=== PATIENT | male | born 2000 | race Caucasian/White ===

== ENCOUNTER 2021-03-13 08:16 | Inpatient (IN) ==
--- NOTE | 2021-03-13 08:35 | Emergency Department Note ---
Impression & Plan Pneumomediastinum ED Provider Note NAME: JOSE SOLITARIO AGE: 20 SEX: M : 2000 ARRIVES VIA: Walk-In INFORMANT: Patient, ED PROVIDER(S): Valeriy Nixon MD Chief Complaint: Sore throat, difficulty breathing HPI: Patient does present with the above complaints and states that this began yesterday. The patient did take some Advil which mildly improved his symptoms. The patient denies any cough or vomiting. The patient denies any alcohol tobacco or drug use. Patient is not vaccinated for COVID-19. Patient states that he noticed some increasing stiffness to the neck and thought he felt "rice crispies." The patient denies any trauma. Patient denies any falls or head injury. Patient denies any acute difficulty breathing at the bedside and states he is able to handle his secretions and swallow okay. Patient last had a negative Covid test through [facility] last Saturday. Patient denies any fevers or chills abdominal pain nausea or vomiting. ROS: See HPI for pertinent positives and negatives. A total of 10 systems were reviewed and otherwise negative. Past medical history: See below Surgical history: See below Social history: See below Physical Exam: GENERAL: NAD, wearing a mask, non-toxic. EYE EXAM: Normal conjunctiva. PERRL, no anisocoria and EOM's grossly intact w/o pain. NECK: Crepitus over the left anterior neck. Supple, no nuchal rigidity, no adenopathy, non-tender. No signs of meningismus. FROM of the neck with good chin to chest and neck extension. No stridor. LUNGS: Clear to auscultation. Normal chest wall mechanics. HEART: NSR, no MRG. ABDOMEN: Abdomen soft, non-tender, normo-active bowel sounds, no masses, no rebound or guarding. BACK: No CVA TTP. SKIN: No rashes and no bruising. UPPER EXTREMITIES: Upper extremities are grossly normal. LOWER EXTREMITIES: Grossly normal, no edema. NEURO EXAM: A&O x3, cranial nerves II-XII grossly intact, normal speech, moves all 4 extremities on command w/o issue. Differential diagnoses: Pneumomediastinum, pneumothorax, esophageal perforation/tear viral syndrome, tonsillitis, streptococcal pharyngitis, mononucleosis, peritonsillar abscess, retropharyngeal abscess, otitis, pneumonia, influenza, as well as other pathologies. Course: Patient was seen and evaluated the bedside. Full history physical exam was performed. EKG interpreted by me Sinus, rate of 61, normal intervals, normal axis, no ST changes or T WI. Imaging Studies: See Below Cardiac monitoring: An order was placed for continuous cardiac monitoring. The monitor shows a rate of 65 with sinus rhythm. MDM: Patient did present due to concern for crepitus to the neck. Blood work was obtained along with CT soft tissue neck and chest. Patient does have a normal white count H&H and platelet count. Kidney function is unremarkable. Patient does have mild elevation in bilirubin but no upper abdominal pain. Covid negative. CTs do show concern for subcutaneous emphysema and pneumomediastinum. I did speak with the on-call fabrication supervisor Dr. Mcdonough who recommended further eval with Gastrografin swallow study and did recommend observation and admission. Swallow study is negative. I did convey the findings to the patient as well as the patient's mother at bedside. They are in agreement plan of care. Patient was made by Dr. Bush. 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 Feels Safe at Home: Yes Immunizations: Not vaccinated for COVID-19 Allergies Allergies Allergy/AdvReac Type Severity Reaction Status Date / Time No Known Allergies Allergy Unverified 03/13/21 09:07 Home Meds Home Medications Medication Instructions Recorded Confirmed No Known Home Medications 03/13/21 03/13/21 Results & Data (ED) Vital Signs Vital Signs - 24 hr 03/13/21 08:26 03/13/21 09:00 03/13/21 09:02 Temperature 36.7 C Temperature Source Temporal Artery Scan Pulse Rate 60 70 Pulse Rate from SpO2 Sensor 70 Pulse Rhythm Respiratory Rate 18 15 Respiratory Effort / Characteristics Non-Labored Spontaneous Respiratory Depth Normal Respiratory Pattern Regular Blood Pressure 151/92 H Blood Pressure [Right Arm] Blood Pressure Mean 111 Blood Pressure Mean [Right Arm] Blood Pressure Position Sitting Pulse Oximetry 97 99 99 Oxygen Delivery Method Room Air Room Air Room Air Sepsis Recent Fever Within 48 Hours No Sepsis New/Unexplained Change in Mental Status N/A Sepsis Action Taken by Nursing No Action Required 03/13/21 09:04 03/13/21 09:30 03/13/21 10:00 Temperature Temperature Source Pulse Rate 58 L 63 49 L Pulse Rate from SpO2 Sensor 63 51 L Pulse Rhythm Regular Respiratory Rate 16 16 14 Respiratory Effort / Characteristics Respiratory Depth Respiratory Pattern Blood Pressure Blood Pressure [Right Arm] Blood Pressure Mean Blood Pressure Mean [Right Arm] Blood Pressure Position Pulse Oximetry 100 98 98 Oxygen Delivery Method Room Air Room Air Room Air Sepsis Recent Fever Within 48 Hours Sepsis New/Unexplained Change in Mental Status Sepsis Action Taken by Nursing 03/13/21 10:30 03/13/21 11:00 03/13/21 12:00 Temperature Temperature Source Pulse Rate 63 54 L 61 Pulse Rate from SpO2 Sensor 64 58 L Pulse Rhythm Respiratory Rate 12 17 12 Respiratory Effort / Characteristics Respiratory Depth Respiratory Pattern Blood Pressure Blood Pressure [Right Arm] Blood Pressure Mean Blood Pressure Mean [Right Arm] Blood Pressure Position Pulse Oximetry 99 96 96 Oxygen Delivery Method Sepsis Recent Fever Within 48 Hours Sepsis New/Unexplained Change in Mental Status Sepsis Action Taken by Nursing 03/13/21 12:30 03/13/21 13:00 03/13/21 13:30 Temperature Temperature Source Pulse Rate 61 61 58 L Pulse Rate from SpO2 Sensor Pulse Rhythm Respiratory Rate 16 24 11 L Respiratory Effort / Characteristics Respiratory Depth Respiratory Pattern Blood Pressure Blood Pressure [Right Arm] Blood Pressure Mean Blood Pressure Mean [Right Arm] Blood Pressure Position Pulse Oximetry 96 96 96 Oxygen Delivery Method Sepsis Recent Fever Within 48 Hours Sepsis New/Unexplained Change in Mental Status Sepsis Action Taken by Nursing 03/13/21 14:00 Temperature Temperature Source Pulse Rate 57 L Pulse Rate from SpO2 Sensor Pulse Rhythm Respiratory Rate 12 Respiratory Effort / Characteristics Respiratory Depth Respiratory Pattern Blood Pressure Blood Pressure [Right Arm] 147/78 H Blood Pressure Mean Blood Pressure Mean [Right Arm] 101 Blood Pressure Position Pulse Oximetry 96 Oxygen Delivery Method Sepsis Recent Fever Within 48 Hours Sepsis New/Unexplained Change in Mental Status Sepsis Action Taken by Half-Way Medications Current Medication List: was personally reviewed by me Laboratory Data Attestation: I reviewed the patient's lab results. Result diagrams: 03/13/21 08:50 03/13/21 08:50 Lab Results 03/13/21 03/13/21 03/13/21 Range/Units 08:50 08:50 08:50 WBC 5.34 (4.8-10.8) K/uL RBC 5.03 (4.7-6.1) M/uL Hgb 15.9 (14.0-18.0) g/dL POC Hgb (14.0-18.0) g/dl Hct 44.9 (42-52) % POC Hct (42-52) % MCV 89.3 (80-100) fL MCH 31.6 (25-34) pg MCHC 35.4 (32-36) g/dL RDW Std Deviation 39.5 (36.4-46.3) fL RDW Coeff of Anna 12.1 (11.5-14.5) % Plt Count 235 (130-400) K/uL MPV 10.2 (7.4-10.4) fL Immature Gran % (Auto) 0.2 % Neut % (Auto) 55.4 % Lymph % (Auto) 31.8 % George % (Auto) 10.3 % Eos % (Auto) 1.7 % Baso % (Auto) 0.6 % Neut # (Auto) 2.96 (1.4-6.5) K/uL Lymph # (Auto) 1.70 (1.2-3.4) K/uL George # (Auto) 0.55 (0.11-0.59) K/uL Eos # (Auto) 0.09 (0-0.5) K/uL Baso # (Auto) 0.03 (0-0.2) K/uL Immature Gran # (Auto) 0.01 (0.00-0.02) K/uL PT 11.1 (9.0-12.0) Seconds INR 1.1 (0.9-1.1) POC Sodium (135-144) mmol/L Sodium 140 (136-145) mmol/L POC Potassium (3.3-5.0) mmol/L Potassium 3.6 (3.5-5.1) mmol/L POC Chloride (101-112) mmol/L Chloride 106 (98-107) mmol/L Carbon Dioxide 28 (21-32) mmol/L POC Total CO2 (24-31) mmol/L Anion Gap 6.0 (3-11) POC Anion Gap (16-25) mmol/L POC BUN (7-18) mg/dl BUN 17 (7-18) mg/dl Creatinine 1.23 (0.6-1.4) mg/dl POC Creatinine mg/dl Est Cr Clr Drug Dosing 105.4 ml/min Est GFR ( Amer) 97.3 ml/min Est GFR (Non-Af Amer) 84.0 ml/min BUN/Creatinine Ratio 13.4 (10-20) Glucose 95 (70-99) mg/dl POC Glucose (other) (70-99) mg/dl Calcium 9.1 (8.5-10.1) mg/dl POC Ioniz Calcium Harriet mmol/l Total Bilirubin 1.4 H (0.2-1) mg/dl AST 9 L (15-37) U/L ALT 16 (12-78) U/L Alkaline Phosphatase 83 (45-117) U/L Total Protein 7.3 (6.4-8.2) gm/dl Albumin 3.9 (3.4-5.0) gm/dl Globulin 3.4 (2.5-4.0) gm/dl Albumin/Globulin Ratio 1.1 (0.9-2) COVID-19 Eval Order SARS-CoV-2 (PCR) (Negative) 03/13/21 03/13/21 03/13/21 Range/Units 08:50 08:50 09:00 WBC (4.8-10.8) K/uL RBC (4.7-6.1) M/uL Hgb (14.0-18.0) g/dL POC Hgb 15.3 (14.0-18.0) g/dl Hct (42-52) % POC Hct 45 (42-52) % MCV (80-100) fL MCH (25-34) pg MCHC (32-36) g/dL RDW Std Deviation (36.4-46.3) fL RDW Coeff of Anna (11.5-14.5) % Plt Count (130-400) K/uL MPV (7.4-10.4) fL Immature Gran % (Auto) % Neut % (Auto) % Lymph % (Auto) % George % (Auto) % Eos % (Auto) % Baso % (Auto) % Neut # (Auto) (1.4-6.5) K/uL Lymph # (Auto) (1.2-3.4) K/uL George # (Auto) (0.11-0.59) K/uL Eos # (Auto) (0-0.5) K/uL Baso # (Auto) (0-0.2) K/uL Immature Gran # (Auto) (0.00-0.02) K/uL PT (9.0-12.0) Seconds INR (0.9-1.1) POC Sodium 140 (135-144) mmol/L Sodium (136-145) mmol/L POC Potassium 3.6 (3.3-5.0) mmol/L Potassium (3.5-5.1) mmol/L POC Chloride 100 L (101-112) mmol/L Chloride (98-107) mmol/L Carbon Dioxide (21-32) mmol/L POC Total CO2 26 (24-31) mmol/L Anion Gap (3-11) POC Anion Gap 18.0 (16-25) mmol/L POC BUN 17 (7-18) mg/dl BUN (7-18) mg/dl Creatinine (0.6-1.4) mg/dl POC Creatinine 1.1 mg/dl Est Cr Clr Drug Dosing ml/min Est GFR ( Amer) ml/min Est GFR (Non-Af Amer) ml/min BUN/Creatinine Ratio (10-20) Glucose (70-99) mg/dl POC Glucose (other) 94 (70-99) mg/dl Calcium (8.5-10.1) mg/dl POC Ioniz Calcium Harriet 1.31 mmol/l Total Bilirubin (0.2-1) mg/dl AST (15-37) U/L ALT (12-78) U/L Alkaline Phosphatase (45-117) U/L Total Protein (6.4-8.2) gm/dl Albumin (3.4-5.0) gm/dl Globulin (2.5-4.0) gm/dl Albumin/Globulin Ratio (0.9-2) COVID-19 Eval Order Covid19 at [facility] SARS-CoV-2 (PCR) NEGATIVE (Negative) Administered Medications Discontinued Medications Sodium Chloride (Nss) 500 mls @ 999 mls/hr IV .Q31M LUCÍA Stop: 03/13/21 09:15 Last Infusion: 03/13/21 09:37 Dose: 0 mls/hr Documented by: [id number] Admin: 03/13/21 08:58 Dose: 999 mls/hr Documented by: [id number] Ioversol (Optiray 320 100ml) 94 ml IV ONCE ONE Stop: 03/13/21 09:47 Last Admin: 03/13/21 09:45 Dose: 94 ml Documented by: [id number] Imaging Data Radiologist's Impression: Chest CT 03/13/21 08:39 CT OF THE CHEST WITH IV CONTRAST CLINICAL HISTORY: ?pneumomediastinum/crepitus over neck COMPARISON STUDY: Chest radiograph performed earlier today. TECHNIQUE: Following IV administration of 94 mL of Optiray, helical axial images of the chest were obtained. Sagittal and coronal reconstructions were viewed as well as maximal intensity projections on an independent 3-D workstation. Automated exposure control was utilized for the study. A dose lowering technique was utilized adhering to the principles of ALARA. FINDINGS: Note is made of moderate pneumomediastinum and subcutaneous gas within the lower neck. There is no pericardial effusion. There is no pneumothorax. The source for pneumomediastinum is not clear on this exam. Size of the heart is normal. There is no pericardial effusion. There is no consolida tion to suggest pneumonia. There are no pulmonary nodules. No acute fracture or suspicious lesion is identified within the visualized skeletal structures. Note is made of a 1.9 cm enhancing lateral segment hepatic lesion. This is likely benign. This may reflect a flash filling hemangioma. IMPRESSION: Moderate pneumomediastinum and associated subcutaneous gas within the neck. No pneumothorax or pleural effusion. Source for pneumomediastinum not clear on this exam but often from alveolar rupture. ACT 112: Negative or not required by law. Electronically signed by: Toi Messer M.D. 03/13/2021 10:24 AM Chest X-Ray 03/13/21 08:39 XR chest 1V portable HISTORY: weakness COMPARISON: None. FINDINGS: The lungs are clear. The heart is normal in size. There is small amount of pneumomediastinum within the upper chest and subcutaneous emphysema within the neck base/supraclavicular regions. No definite pneumothorax. No fractures within the visualized osseous structures. IMPRESSION: Pneumomediastinum with a small amount of subcutaneous emphysema within the neck base/supraclavicular location. This will be better assessed on the same day chest neck CTA. ACT 112: Negative or not required by law. Electronically signed by: Ike Mejia M.D. 03/13/2021 9:[address] Tissue Neck [address] 03/13/21 08:39 CT soft tissue neck w con HISTORY: Neck pain. ?pneumomediastinum/crepitus over neck TECHNIQUE: Multiaxial CT images of the neck were performed following the use of intravenous contrast and reformatted in the sagittal and coronal plane at the workstation by the radiologist. COMPARISON STUDY: None. FINDINGS: The visualized brain parenchyma and orbits are unremarkable. The pterygopalatine fossa are well-maintained. There is pneumomediastinum with soft tissue gas extending throughout the prevertebral/paravertebral soft tissues and the neck. There is also subcutaneous edema seen within the neck base/supra clavi cular locations. No fractures within the visualized osseous structures. The paranasal sinuses and mastoid air cells are clear. The thyroid gland enhances normally. No cervical lymphadenopathy identified. The parotid and submandibular glands are symmetric. Prevertebral soft tissues and the epiglottis are normal in thickness. The contours of the hypopharynx are within normal limits. The major cervical vessels enhance normally. IMPRESSION: Soft tissue gas seen throughout the neck. This is likely secondary to the pneumomediastinum. This is better appreciated on the same day chest CT. ACT 112: Negative or not required by law. Electronically signed by: Ike Mejia M.D. 03/13/2021 10:00 AM Barium Swallow X-Ray 03/13/21 10:46 FL barium swallow w/o air CLINICAL HISTORY: pneumomediastinum, gastrographin. Assess for esophageal injury. COMPARISON STUDY: Chest CT 03/13/2021. FLUOROSCOPY TIME: 0.1 minutes. FINDINGS: 10 fluoroscopic spot images of the esophagus were submitted. The patient swallowed Gastrografin contrast without difficulty. The esophagus is normal in course, caliber, motility. No hiatus hernia. No extravasation of contrast to suggest a leak. No evidence for esophageal injury. Pneumomediastinum is again noted. IMPRESSION: 1. No evidence for esophageal injury/tear. 2. Pneumomediastinum again noted. ACT 112: Negative or not required by law. Electronically signed by: Ike Mejia M.D. 03/13/2021 11:16 AM Discharge Plan Visit Data Chief Complaint: Illness Stated Complaint: SORE THROAT, HARD TO BREATHE YESTERDAY ED Provider: Valeriy Nixon Discharge Problem: Pneumomediastinum Patient Disposition: Admitted As Inpatient Prescriptions Prescriptions: No Action No Known Home Medications RF: 0 Referrals Referrals: PCP,NO [Primary Care Provider] -
[2021-03-13] MEDS ORDERED: SODIUM CHLORIDE 0.9% 500 ML IV SCH (08:45)
[2021-03-13 09:05] LABS: Basophils # (auto) 0.03 K/uL (0-0.2); Basophils % (auto) 0.6 %; Eosinophils # (auto) 0.09 K/uL (0-0.5); Eosinophils % (auto) 1.7 %; Hematocrit (blood only) 44.9 % (42-52); Hemoglobin 15.9 g/dL (14.0-18.0); Immature Granulocytes # (auto) 0.01 K/uL (0.00-0.02); Immature Granulocytes % (auto) 0.2 %; Lymphocytes % (auto) 31.8 %; Mean Corpuscular Hemoglobin 31.6 pg (25-34); Mean Corpuscular Hgb Conc 35.4 g/dL (32-36); Mean Corpuscular Volume 89.3 fL (80-100); Mean Platelet Volume 10.2 fL (7.4-10.4); Monocytes # (auto) 0.55 K/uL (0.11-0.59); Monocytes % (auto) 10.3 %; Neutrophils # (auto) 2.96 K/uL (1.4-6.5); Neutrophils % (auto) 55.4 %; Platelet Count 235 K/uL (130-400); RDW Coefficient of Variation 12.1 % (11.5-14.5); RDW Standard Deviation 39.5 fL (36.4-46.3); Red Blood Count 5.03 M/uL (4.7-6.1); White Blood Count 5.34 K/uL (4.8-10.8)
[2021-03-13 09:13] LABS: iSTAT Creatinine 1.1 mg/dl; iSTAT Hemoglobin 15.3 g/dl (14.0-18.0); iSTAT Ionized Calcium 1.31 mmol/l; iSTAT Potassium 3.6 mmol/L (3.3-5.0)
[2021-03-13 09:17] LABS: INR 1.1 (0.9-1.1); Prothrombin Time 11.1 Seconds (9.0-12.0)
--- NOTE | 2021-03-13 09:29 | XRay Report ---
XR chest 1V portable HISTORY: weakness COMPARISON: None. FINDINGS: The lungs are clear. The heart is normal in size. There is small amount of pneumomediastinu m within the upper chest and subcutaneous emphysema within the neck base/supraclavicular regions. No definite pneumothorax. No fractures within the visualized osseous structures. IMPRESSION: Pneumomediastinum with a small amount of subcutaneous emphysema within the neck base/supraclavicular location. This will be better assessed on the same day chest neck CTA. ACT 112: Negative or not required by law. Electronically signed by: Ike Mejia M.D. 03/13/2021 9:27 AM
[2021-03-13 09:30] LABS: Albumin Level 3.9 gm/dl (3.4-5.0); BUN Creatinine Ratio 13.4 (10-20); Calcium 9.1 mg/dl (8.5-10.1); Creatinine Clr Calc Pharmacy 105.4 ml/min; Est GFR (African American) 97.3 ml/min; Potassium 3.6 mmol/L (3.5-5.1)
[2021-03-13 09:33] LABS: Albumin Globulin Ratio 1.1 (0.9-2); Bilirubin,Total 1.4 mg/dl (0.2-1); Globulin 3.4 gm/dl (2.5-4.0); Total Protein 7.3 gm/dl (6.4-8.2)
[2021-03-13] MEDS ORDERED: OPTIRAY 320 100ml IV ONE (09:46)
--- NOTE | 2021-03-13 10:02 | CT Scan Report ---
CT soft tissue neck w con HISTORY: Neck pain. ?pneumomediastinum/crepitus over neck TECHNIQUE: Multiaxial CT images of the neck were performed following the use of intravenous contrast and reformatted in the sagittal and coronal plane at the workstation by the radiologist. COMPARISON STUDY: None. FINDINGS: The visualized brain parenchyma and orbits are unremarkable. The pterygopalatine fossa are well-maintained. There is pneumomediastinum with soft tissue gas extending throughout the prevertebra l/paravertebral soft tissues and the neck. There is also subcutaneous edema seen within the neck base /supra clavicular locations. No fractures within the visualized osseous structures. The paranasal sin uses and mastoid air cells are clear. The thyroid gland enhances normally. No cervical lymphadenopath y identified. The parotid and submandibular glands are symmetric. Prevertebral soft tissues and the e piglottis are normal in thickness. The contours of the hypopharynx are within normal limits. The henry r cervical vessels enhance normally. IMPRESSION: Soft tissue gas seen throughout the neck. This is likely secondary to the pneumomediastinum. This is better appreciated on the same day chest CT. ACT 112: Negative or not required by law. Electronically signed by: Ike Mejia M.D. 03/13/2021 10:00 AM
--- NOTE | 2021-03-13 10:25 | CT Scan Report ---
CT OF THE CHEST WITH IV CONTRAST CLINICAL HISTORY: ?pneumomediastinum/crepitus over neck COMPARISON STUDY: Chest radiograph performed earlier today. TECHNIQUE: Following IV administration of 94 mL of Optiray, helical axial images of the chest were o btained. Sagittal and coronal reconstructions were viewed as well as maximal intensity projections o n an independent 3-D workstation. Automated exposure control was utilized for the study. A dose low ering technique was utilized adhering to the principles of ALARA. FINDINGS: Note is made of moderate pneumomediastinum and subcutaneous gas within the lower neck. The re is no pericardial effusion. There is no pneumothorax. The source for pneumomediastinum is not cordell r on this exam. Size of the heart is normal. There is no pericardial effusion. There is no consolidat ion to suggest pneumonia. There are no pulmonary nodules. No acute fracture or suspicious lesion is i dentified within the visualized skeletal structures. Note is made of a 1.9 cm enhancing lateral segme nt hepatic lesion. This is likely benign. This may reflect a flash filling hemangioma. IMPRESSION: Moderate pneumomediastinum and associated subcutaneous gas within the neck. No pneumotho rax or pleural effusion. Source for pneumomediastinum not clear on this exam but often from alveolar rupture. ACT 112: Negative or not required by law. Electronically signed by: Toi Messer M.D. 03/13/2021 10:24 AM
--- NOTE | 2021-03-13 11:17 | Fluoroscopy Report ---
FL barium swallow w/o air CLINICAL HISTORY: pneumomediastinum, gastrographin. Assess for esophageal injury. COMPARISON STUDY: Chest CT 03/13/2021. FLUOROSCOPY TIME: 0.1 minutes. FINDINGS: 10 fluoroscopic spot images of the esophagus were submitted. The patient swallowed Gastrogr afin contrast without difficulty. The esophagus is normal in course, caliber, motility. No hiatus her tanvir. No extravasation of contrast to suggest a leak. No evidence for esophageal injury. Pneumomediast inum is again noted. IMPRESSION: 1. No evidence for esophageal injury/tear. 2. Pneumomediastinum again noted. ACT 112: Negative or not required by law. Electronically signed by: Ike Mejia M.D. 03/13/2021 11:16 AM
--- NOTE | 2021-03-13 13:17 | History & Physical Report ---
Date of Service March 13, 2021 Assessment & Plan (1) Pneumomediastinum: Plan: Patient reports he weight lifts Saturday through Saturday. This may have contributted to his problem. Will admit under observation. will recheck chest x ray in AM. D/W pulmonary, who recommends to repeat x ray in AM. Pulmonaryn Consult placed per request from Family Barium Swallow eval was negative. will place on full liquid diet and advance as tolerated. Will hold off DVT proph for now. History of Present Illness Chief Complaint: chest pain Primary Care Provider: NO PCP 20 yo male with no significant past medical history comes into the hospital after having chest pain on Saturday. Patient reports midsternum dull chest pain even on shallow inspiration yesterday morning. It continued throughout the day. The next day (today)patient reported having crackling when swallowing and palpating his neck. Patient reports that he weight lifts during the week, but did not notice any issues or discomfort out of the ordinary after his weight lifting session on Saturday. 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: [employer] 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 Other Information That Helps Us Care for You: No Feels Safe at Home: Yes Safety Concerns: Feels Safe At This Time Assistive Devices: None Review of Systems Constitutional: as per Subjective / HPI; no fever and no sweats Eyes: no blind spots and no diplopia Ear, Nose, Mouth, Throat: no ear pain and no ear trauma Respiratory: no cough and no change in sputum Cardiovascular: no chest pain Gastrointestinal: no abdominal pain and no bloating Musculoskeletal: no back pain and no radicular pain Integumentary: no acne and no rash Neurologic: no gait abnormality Psychiatric: no behavioral changes and no hopelessness Endocrine: no fatigue Physical Exam Constitutional: WD/WN, vitals as above Eyes: PERRL, conjunctivae normal, anicteric sclerae ENMT: external ear and nose normal, oropharynx normal Neck: trachea midline, no thyromegaly mild swelling anteriorly, crepitus noted on palpation (off superior left clavicle). Respiratory: normal respiratory effort, lungs clear to auscultation Cardiovascular: RRR, no murmur, no edema Gastrointestinal (Abdomen): normal bowel sounds, soft, nontender, no hepatosplenomegaly Musculoskeletal: no cyanosis or clubbing, extremities motor strength 5/5 Skin: no rashes, warm and dry Results & Data Results & Data ([facility]) Vital Signs (Past 12 Hours) Vital Signs Temp Pulse Resp BP Pulse Ox 03/13/21 10:00 49 L 14 98 03/13/21 09:30 63 16 98 03/13/21 09:04 58 L 16 100 03/13/21 09:02 99 03/13/21 09:00 70 15 99 03/13/21 08:26 36.7 C 60 18 151/92 H 97 PG Care Time/CCT Total # of Minutes Spent Total Time Spent with Patient: Total time spent is greater than 50% in coordination of care (as documented) at patient's floor/unit and/or counseling patient: Coding Level of Care Code INT OBSERVATION CARE 70M LVL 3 Diagnoses Pneumomediastinum J98.2
--- NOTE | 2021-03-13 16:07 | Pulmonary Consultation ---
Date of Consultation March 13, 2021 Assessment & Plan (1) Pneumomediastinum: Impression: 20-year-old male with what appears to be acute primary pneumomediastinum. Gastrografin swallow was unremarkable. Unclear if this could have been related to Valsalva maneuvers performed while the patient was lifting weights although he does not describe significant straining against a closed glottis. Nicholas effect is possible. There does not appear to be any evidence of structural lung disease. Recommendations: 1. I reviewed the images independently and with the patient and his mother who is a cardiac nurse practitioner. We reviewed the pathophysiology behind primary pneumomediastinum as well as treatment options. I feel that we have excluded all serious causes of pneumomediastinum at this point time and would recommend following the patient with a repeat chest x-ray in 24hours as this appears to be an unprovoked event. The reason to perform the chest x-rays to ensure he is not developing pneumothorax or any other complications such as pneumopericardium. If it looks stable, the patient can likely be discharged home. 2. Pain control, anxiolysis and cough suppression as needed. Okay to advance his diet to regular 3. 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 Depending on his imaging study tomorrow, he may require additional imaging to document resolution although he was advised this may take days to weeks for the subcutaneous air to resolve. He was advised to contact us if he experiences changes in voice, difficulty breathing, progressive chest discomfort, fevers, or progressive chest pain. This would necessitate more urgent imaging. The above recommendations and plan were extensively discussed with the patient and his mother at the bedside. Questions were answered to the best my ability. They expressed understanding and are in agreement with plan as outlined History of Present Illness Attending Physician: Jacinto Bush History of Present Illness Asked by hospitalist to assist in evaluation management this patient with what appears to be a spontaneous pneumomediastinum. History is obtained from discussion with the patient his mother at bedside as well as review the [facility] medical record. Patient is a 20-year-old male without any pulmonary history who presented to the emergency room today after waking up with some neck fullness and pain. Chest x- ray and CT scan were performed which demonstrated primary pneumomediastinum without pneumothorax. No structural lung disease. Patient does lift weights about 3 times a week and last did it on Saturday. He does not report any significant straining. He is not had any nausea vomiting or retching. No prior history of asthma although his mother does relate that he had a history of bronchiolitis as a child and was on nebulizers for a brief period of time. No family history of structural lung disease. The patient denies any vaping or cigarette use. No history of THC use or cocaine abuse. He is not had any whe ezing. No fevers chills night sweats or other constitutional symptoms. 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 No additions or deletions Physical Exam Constitutional: WD/WN, vitals as above Neck: trachea midline, no thyromegaly Crepitus palpable in the anterior neck descending down to the sternum Respiratory: normal respiratory effort, lungs clear to auscultation Cardiovascular: RRR, no murmur, no edema Gastrointestinal (Abdomen): normal bowel sounds, soft, nontender, no hepatosplenomegaly Musculoskeletal: Extremities: extremities normal to inspection Skin: no rashes, warm and dry Neurologic: Nonfocal exam Lymphatic: no cervical lymphadenopathy Results & Data Results & Data ([facility]) Vital Signs (Past 12 Hours) Vital Signs Temp Pulse Resp BP BP Pulse Ox 03/13/21 14:00 57 L 12 147/78 H 96 03/13/21 13:30 58 L 11 L 96 03/13/21 13:00 61 24 96 03/13/21 12:30 61 16 96 03/13/21 12:00 61 12 96 03/13/21 11:00 54 L 17 96 03/13/21 10:30 63 12 99 03/13/21 10:00 49 L 14 98 03/13/21 09:30 63 16 98 03/13/21 09:04 58 L 16 100 03/13/21 09:02 99 03/13/21 09:00 70 15 99 03/13/21 08:26 36.7 C 60 18 151/92 H 97 Critical Care Results & Data Vital Signs (Past 12 Hours) Vital Signs Temp Pulse Resp BP BP Pulse Ox 03/13/21 14:00 57 L 12 147/78 H 96 03/13/21 13:30 58 L 11 L 96 03/13/21 13:00 61 24 96 03/13/21 12:30 61 16 96 03/13/21 12:00 61 12 96 03/13/21 11:00 54 L 17 96 03/13/21 10:30 63 12 99 03/13/21 10:00 49 L 14 98 03/13/21 09:30 63 16 98 03/13/21 09:04 58 L 16 100 03/13/21 09:02 99 03/13/21 09:00 70 15 99 03/13/21 08:26 36.7 C 60 18 151/92 H 97 Lab & Micro Results (Past 24 Hours) RBC 5.03 M/uL (4.7-6.1) 03/13/21 WBC 5.34 K/uL (4.8-10.8) 03/13/21 Hgb 15.9 g/dL (14.0-18.0) 03/13/21 Hct 44.9 % (42-52) 03/13/21 MCV 89.3 fL (80-100) 03/13/21 MCH 31.6 pg (25-34) 03/13/21 MCHC 35.4 g/dL (32-36) 03/13/21 RDW Standard Deviation 39.5 fL (36.4-46.3) 03/13/21 RDW Coefficient of Variation 12.1 % (11.5-14.5) 03/13/21 Plt Count 235 K/uL (130-400) 03/13/21 MPV 10.2 fL (7.4-10.4) 03/13/21 Neutrophils (%) (Auto) 55.4 % 03/13/21 Lymphocytes (%) (Auto) 31.8 % 03/13/21 Monocytes # (Auto) 0.55 K/uL (0.11-0.59) 03/13/21 Eosinophils # (Auto) 0.09 K/uL (0-0.5) 03/13/21 Immature Granulocyte % (Auto) 0.2 % 03/13/21 Neutrophils # (Auto) 2.96 K/uL (1.4-6.5) 03/13/21 Lymphocytes # (Auto) 1.70 K/uL (1.2-3.4) 03/13/21 Monocytes # (Auto) 0.55 K/uL (0.11-0.59) 03/13/21 Eosinophils # (Auto) 0.09 K/uL (0-0.5) 03/13/21 Basophils # (Auto) 0.03 K/uL (0-0.2) 03/13/21 Immature Granulocyte # (Auto) 0.01 K/uL (0.00-0.02) 03/13/21 Na 140 mmol/L (136-145) 03/13/21 K 3.6 mmol/L (3.5-5.1) 03/13/21 Cl 106 mmol/L (98-107) 03/13/21 CO2 28 mmol/L (21-32) 03/13/21 Anion Gap 6.0 (3-11) 03/13/21 BUN 17 mg/dl (7-18) 03/13/21 Creatinine 1.23 mg/dl (0.6-1.4) 03/13/21 Estimated GFR ( Amer) 97.3 ml/min 03/13/21 Estimated GFR (Non-Af Amer) 84.0 ml/min 03/13/21 BUN/Creatinine Ratio 13.4 (10-20) 03/13/21 Glu 95 mg/dl (70-99) 03/13/21 Ca 9.1 mg/dl (8.5-10.1) 03/13/21 Total Bilirubin 1.4 mg/dl (0.2-1) H 03/13/21 AST 9 U/L (15-37) L 03/13/21 ALT 16 U/L (12-78) 03/13/21 Alkaline Phosphatase 83 U/L (45-117) 03/13/21 TP 7.3 gm/dl (6.4-8.2) 03/13/21 Albumin 3.9 gm/dl (3.4-5.0) 03/13/21 Globulin 3.4 gm/dl (2.5-4.0) 03/13/21 Albumin/Globulin Ratio 1.1 (0.9-2) 03/13/21 Calcium Level 9.1 mg/dl (8.5-10.1) 03/13/21 08:50 03/13/21 Prothromb Time International Ratio 1.1 (0.9-1.1) 03/13/21 08:50 03/13/21 Diagnostic Findings (Past 24 Hours) Chest CT 03/13/21 08:39 CT OF THE CHEST WITH IV CONTRAST CLINICAL HISTORY: ?pneumomediastinum/crepitus over neck COMPARISON STUDY: Chest radiograph performed earlier today. TECHNIQUE: Following IV administration of 94 mL of Optiray, helical axial images of the chest were obtained. Sagittal and coronal reconstructions were viewed as well as maximal intensity projections on an independent 3-D workstation. Automated exposure control was utilized for the study. A dose lowering technique was utilized adhering to the principles of ALARA. FINDINGS: Note is made of moderate pneumomediastinum and subcutaneous gas within the lower neck. There is no pericardial effusion. There is no pneumothorax. The source for pneumomediastinum is not clear on this exam. Size of the heart is normal. There is no pericardial effusion. There is no consolidation to suggest pneumonia. There are no pulmonary nodules. No acute fracture or suspicious lesion is identified within the visualized skeletal structures. Note is made of a 1.9 cm enhancing lateral segment hepatic lesion. This is likely benign. This may reflect a flash filling hemangioma. IMPRESSION: Moderate pneumomediastinum and associated subcutaneous gas within the neck. No pneumothorax or pleural effusion. Source for pneumomediastinum not clear on this exam but often from alveolar rupture. ACT 112: Negative or not required by law. Electronically signed by: Toi Messer M.D. 03/13/2021 10:24 AM Chest X-Ray 03/13/21 08:39 XR chest 1V portable HISTORY: weakness COMPARISON: None. FINDINGS: The lungs are clear. The heart is normal in size. There is small amount of pneumomediastinum within the upper chest and subcutaneous emphysema within the neck base/supraclavicular regions. No definite pneumothorax. No fractures within the visualized osseous structures. IMPRESSION: Pneumomediastinum with a small amount of subcutaneous emphysema within the neck base/supraclavicular location. This will be better assessed on the same day chest neck CTA. ACT 112: Negative or not required by law. Electronically signed by: Ike Mejia M.D. 03/13/2021 9:27 AM Soft Tissue Neck CT 03/13/21 08:39 CT soft tissue neck w con HISTORY: Neck pain. ?pneumomediastinum/crepitus over neck TECHNIQUE: Multiaxial CT images of the neck were performed following the use of intravenous contrast and reformatted in the sagittal and coronal plane at the workstation by the radiologist. COMPARISON STUDY: None. FINDINGS: The visualized brain parenchyma and orbits are unremarkable. The pterygopalatine fossa are well-maintained. There is pneumomediastinum with soft tissue gas extending throughout the prevertebral/paravertebral soft tissues and the neck. There is also subcutaneous edema seen within the neck base/supra clavicular locations. No fractures within the visualized osseous structures. The paranasal sinuses and mastoid air cells are clear. The thyroid gland enhances normally. No cervical lymphadenopathy identified. The parotid and submandibular glands are symmetric. Prevertebral soft tissues and the epiglottis are normal in thickness. The contours of the hypopharynx are within normal limits. The major cervical vessels enhance normally. IMPRESSION: Soft tissue gas seen throughout the neck. This is likely secondary to the pneumomediastinum. This is better appreciated on the same day chest CT. ACT 112: Negative or not required by law. Electronically signed by: Ike Mejia M.D. 03/13/2021 10:00 AM Barium Swallow X-Ray 03/13/21 10:46 FL barium swallow w/o air CLINICAL HISTORY: pneumomediastinum, gastrographin. Assess for esophageal injury. COMPARISON STUDY: Chest CT 03/13/2021. FLUOROSCOPY TIME: 0.1 minutes. FINDINGS: 10 fluoroscopic spot images of the esophagus were submitted. The patient swallowed Gastrografin contrast without difficulty. The esophagus is normal in course, caliber, motility. No hiatus hernia. No extravasation of contrast to suggest a leak. No evidence for esophageal injury. Pneumomediastinum is again noted. IMPRESSION: 1. No evidence for esophageal injury/tear. 2. Pneumomediastinum again noted. ACT 112: Negative or not required by law. Electronically signed by: Ike Mejia M.D. 03/13/2021 11:16 AM I & O Totals 24 Hours 03/12/21 03/13/21 03/14/21 06:59 06:59 06:59 Intake Total 500 / 500 Balance 500 / 500 Cumulative 03/13/21 08:16 thru 03/13/21 09:45 Intake Total 500 Balance 500 RT Ventilator Mngmt (Last Documented) Ventilator Ordered Settings Respiratory Rate 12 03/13/21 14:00 Ventilator - PT Measurements Respiratory Rate 12 PG Care Time/CCT Total # of Minutes Spent Total Time Spent with Patient: Total time spent is greater than 50% in coordination of care (as documented) at patient's floor/unit and/or counseling patient: Coding Level of Care Code 07427 Inpt Consult Level 3 Diagnoses Pneumomediastinum J98.2
[2021-03-13] MEDS ORDERED: FLUARIX QUADRIVALENT 0.5 ML SYR IM ONE (17:28)
[2021-03-13] MEDS ORDERED: ACETAMINOPHEN 325 MG TAB PO PRN (21:17)
[2021-03-14] MEDS ORDERED: COUGH DROP (SUGAR FREE) LOZ 24 LOZ/1 BOX BUCCAL PRN (01:39)
--- NOTE | 2021-03-14 09:04 | Pulmonology Progress Note ---
Date of Service March 14, 2021 Assessment & Plan (1) Pneumomediastinum: Plan: Impression: 20-year-old male with what appears to be acute primary pneumomediastinum. Gastrografin swallow was unremarkable. He appears clinically stable to improved this morning. We are awaiting his follow-up x-ray Recommendations: 1. Pneumomediastinum: Await chest x-ray today. If it demonstrates stability or improvement, the patient can be discharged from the hospital with pain control and instructions to return should he experience increasing chest pain or shortness of breath. 2. Pain control, anxiolysis and cough suppression as needed. 3. 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 4. Diarrhea per primary service I would be happy to see the patient back in clinic with a follow-up PA and lateral chest x-ray in 2 to 4 weeks if needed. The above recommendations and plan were extensively discussed with the patient and his mother at the bedside. Questions were answered to the best my ability. They expressed understanding and are in agreement with plan as outlined Admission and Anticipated Discharge Date Admission Date: March 13, 2021 Subjective Patient seen and examined. EMR reviewed. He slept reasonably well. He continues to have a small amount of pain just above his clavicles. He is not having any voice changes. No shortness of breath. No coughing. He did experience some loose stools overnight. No fevers chills or night sweats. He is tolerating a diet. Review of Systems Review of Systems: All systems reviewed & are unremarkable except as noted in Subjective Physical Exam Constitutional: WD/WN, vitals as above Neck: trachea midline, no thyromegaly Palpable crepitus appears decreased on palpation. Respiratory: normal respiratory effort, lungs clear to auscultation Cardiovascular: RRR, no murmur, no edema Gastrointestinal (Abdomen): normal bowel sounds, soft, nontender, no hepatosplenomegaly Musculoskeletal: Extremities: extremities normal to inspection Skin: no rashes, warm and dry Lymphatic: no cervical lymphadenopathy Results & Data Results & Data ([facility]) Vital Signs (Past 12 Hours) Vital Signs Temp Pulse Resp BP Pulse Ox 03/14/21 07:38 36.7 C 57 L 18 109/65 97 03/14/21 02:40 36.7 C 43 L 16 120/69 97 03/13/21 23:10 37.0 C 57 L 16 141/88 H 98 Laboratory Results 03/13/21 08:50 03/13/21 08:50 Diagnostic Findings Follow-up chest x-ray is pending PG Care Time/CCT Total # of Minutes Spent Total Time Spent with Patient: Total time spent is greater than 50% in coordination of care (as documented) at patient's floor/unit and/or counseling patient: Coding Level of Care Code 75274 Subseq Hosp Care Lvl 2 Diagnoses Pneumomediastinum J98.2
--- NOTE | 2021-03-14 09:29 | XRay Report ---
XR chest 2V PA/lateral CLINICAL HISTORY: pneumomediastinum TECHNIQUE: AP and lateral frontal radiograph of the chest was obtained. Comparison: Comparison is made to chest one view 03/13/2021 FINDINGS: No lines and tubes are seen. Residual pneumomediastinum, minimally decreased from prior exam. Subcuta neous emphysema is partially visualized in the soft tissues of the neck. The lungs are clear. No evid ence of pleural effusion or pneumothorax. IMPRESSION: Redemonstration of pneumomediastinum, minimally decreased from prior exam. ACT 112: Negative or not required by law. Electronically signed by: Raj Maciel M.D. 03/14/2021 9:28 AM
--- NOTE | 2021-03-14 10:05 | Discharge Summary ---
Date of Service March 14, 2021 Admission HPI Per Admitting Provider 20 yo male with no significant past medical history comes into the hospital after having chest pain on Saturday. Patient reports midsternum dull chest pain even on shallow inspiration yesterday morning. It continued throughout the day. The next day (today)patient reported having crackling when swallowing and palpating his neck. Patient reports that he weight lifts during the week, but did not notice any issues or discomfort out of the ordinary after his weight lifting session on Saturday. Principal Diagnosis Pneumomediastinum Discharge Exam Constitutional WD/WN, vitals as above Neck Normal neck on inspection Respiratory No respiratory distress Cardiovascular regular Psychiatric A+Ox3, euthymic affect Discharge Data Allergies Allergy/AdvReac Type Severity Reaction Status Date / Time No Known Allergies Allergy Unverified 03/13/21 09:07 Consultations 03/13/21 11:58 ED Decision to Admit Stat 03/13/21 12:34 ED Decision to Admit Stat 03/13/21 15:18 Consult Pulmonology Routine Ordered Studies 03/13/21 08:39 CT chest diagnostic w con Stat CT soft tissue neck w con Stat Hospital Course (1) Pneumomediastinum: 20 y/o M here with chest pain and feeling crepitus in his chest due to acute primary pneumomediastinum as confirmed on CXR and CT neck and chest. He also had Gastrografin swallow and it was unremarkable. He was kept overnight for observation. Stayed clinically stable. Repeat CXR showed minimal improvement. He was discharged home with prescription of norco for pain control and cough suppression. He was instructed to return should he experience increasing chest pain or shortness of breath. 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 To have outpatient follow-up with pulmonology for possible PA and lateral chest x-ray in 2 to 4 weeks if needed. Total Time Total Time Spent Total Time Spent (In Minutes): 30 Discharge Plan Discharge Items Patient Disposition: Home - Self-Care Reason For Visit: pneumomediastinum Discharge Diagnosis: Pneumomediastinum Activity: As commented below Non-emergency contact: Primary Care Provider Call non-emergency contact if: your symptoms worsen and your pain is not controlled Follow-up/Referrals: PCP,NO [Primary Care Provider] - Diet: Regular Addtl Attending Provider Instructions: Pneumomediastinum: -Your recheck xray showed stability with minimal improvement. You should return to ED if you experience increasing chest pain or shortness of breath. -Hydrocodone is being prescribed to you for pain control and cough suppresion. -You should avoid significant changes in barometric pressure including diving, or flying on commercial airline with pressurized air cabins for the next 6 weeks. -Please call Dr. Mcdonough clinic to set up appointment for follow-up in 2-4 weeks for recheck Xray if needed. Phone number - [phone] Pending Studies at Discharge: No Stand-Alone Forms: My [employer], Work/School Release, Smoking Cessation Medications and DC Order Prescriptions: New hydrocodone-acetaminophen 5-325 mg tablet 1 tab PO TID PRN (Reason: pain) Qty: 10 RF: 0 No Action No Known Home Medications RF: 0 Discharge Orders: Discharge Order (Routine); Ordered 03/14/21 Ordered By: Natalie Perera/Other Patient Handouts: Chest and Lung Problems, Interstitial Lung Disease Admission Data Admit Date/Time: 03/13/21 16:33 Attending Provider: Natalie Euceda Admit Provider: Jacinto Bush Primary Care Provider: PCP,NO Other Providers: Anson Gold ; Jacinto Bush ; Johnnie Mcdonough Other Interventions: Discharge Summary Assessment (RN) Last Done: 03/14/21 10:42
--- NOTE | 2021-03-14 12:03 | Electrocardiogram Report ---
Test Reason : Blood Pressure : / mmHG Vent. Rate : 061 BPM Atrial Rate : 061 BPM P-R Int : 132 ms QRS Dur : 102 ms QT Int : 412 ms P-R-T Axes : -07 074 044 degrees QTc Int : 414 ms Sinus rhythm with Premature atrial complexes Otherwise normal ECG No previous ECGs available Confirmed by Aaron Alcala ([id number]) on 03/14/2021 12:03:32 PM Referred By: Confirmed By:Aaron Alcala
== END 2021-03-14 11:59 | disposition home or self-care (01) | DRG 201 ==
LOC: EDINP 08:16 → ED 08:16 → 2N 16:27 → SUATTDRO 16:33 → 2N 20:23